=== PATIENT | male | born 1965 | race Hispanic/Latino ===

== ENCOUNTER 2024-04-11 10:14 | Outpatient (CLI) | payer OTHER, SELFPAY ==
--- NOTE | ~2024-04-11 | MR_ITS ---
EXAMINATION: MR abdomen wo con DATE: 04/11/2024 11:40 INDICATION: Right renal cyst TECHNIQUE: Magnetic resonance imaging (MRI) of the abdomen was performed without intravenous contrast . Sequences included coronal T2-weighted SS-FSE, coronal and axial FS 2D-FIESTA, axial STIR FSE, axi al T2-weighted SS-FSE, axial T2-weighted FS SS-FSE, axial diffusion-weighted SE, axial dual-echo T1-w eighted FSPGR, and coronal T1-weighted LAVA. COMPARISON: None. FINDINGS: Heart size is normal. No pericardial or pleural effusion. Liver, spleen, pancreas and bilateral adren al glands are normal. Magnetic field artifact associated with cholecystectomy clips at the gallbladde r fossa. There are bilateral well-defined renal lesions with relatively homogeneous T2 hyperintensity consistent with renal cysts. Couple of the cysts including the largest measuring 2.1 cm at the right kidney and 1.2 similar at the left kidney which demonstrate T2 signal slightly less intense than the CSF suggesting proteinaceous or hemorrhagic cysts. There are few scattered diverticula along the vis ualized colon without adjacent from trace stranding to suggest diverticulitis. Appendix and visualize d small bowel are normal. Normal bone marrow signal throughout. IMPRESSION: 1. A few bilateral homogeneous T2 hyperintense renal lesions most consistent with cysts, including a couple likely proteinaceous/hemorrhagic cysts. Reviewed, dictated and finalized at location B. IMPRESSION: 1. A few bilateral homogeneous T2 hyperintense renal lesions most consistent wi th cysts, including a couple likely proteinaceous/hemorrhagic cysts.
== END 2024-04-11 10:15 | disposition home or self-care (01) ==
LOC: ANHIMG 10:21
PROVIDERS: Visit Provider Internal Medicine
DX: N28.1 Cyst of kidney, acquired (principal)
CPT/HCPCS: 74181